=== PATIENT | female | born 1960 | race Caucasian/White ===

== ENCOUNTER 2025-07-16 16:02 | Inpatient (IN) | payer MEDICARE ==
[~2025-07-16 16:02] MED LIST: Iopamidol-370 76% 500 ML MDV (1 ML CHARGE) ONE
[2025-07-16 17:38] LABS: #Basophils Less than 0.03 10x3/uL (0.0-0.2); #Eosinophils Less than 0.03 10x3/uL (0.0-0.7); #Monocytes 0.20 10x3/uL (0.11-0.59); #Neutrophils 4.45 10x3/uL (1.40-6.50); %Basophils 0.2 % (0.0-1.0); %Eosinophils 0.2 % (0.0-10.0); %Lymphocytes 9.1 % (21.0-51.0); %Monocytes 3.9 % (0.0-10.0); %Neutrophils 86.2 % (42.0-75.0); Hematocrit 34.7 % (36.0-47.0); Hemoglobin 11.4 g/dL (12.0-16.0); Mean Corpuscular Hemoglobin 35.3 pg (27.0-31.0); Mean Corpuscular Volume 107.4 fL (78.0-98.0); Platelet Count 65 10x3/uL (130-400); Red Blood Cell (RBC) Count 3.23 mill/uL (4.20-5.40); White Blood Cell (WBC) Count 5.16 10x3/uL (4.8-10.8)
[2025-07-16] MEDS ORDERED: Ondansetron PF 4 MG/2 ML Vial ONE (17:49)
[2025-07-16] MEDS ORDERED: Magnesium 2 GM/50 ML BAG (IN WATER) ONE ×2 (17:50→19:25)
[2025-07-16 18:08] LABS: ALT (SGPT) 23 U/L (Less than 34); AST (SGOT) 66 U/L (11-34); Acetaminophen Less than 10 mcg/mL (Less than 10); Albumin 2.5 g/dL (3.1-4.5); Alkaline Phosphatase 120 U/L (40-110); Anion Gap 15 mmol/L (10-20); BUN (Urea Nitrogen) 7 mg/dL (9.8-20.1); Bilirubin, Total 9.9 mg/dL (0.3-1.2); CK (CPK) 35 U/L (29-168); Calc. Creatinine Clearance 0 mL/min (70-130); Calcium 8.9 mg/dL (7.8-10.44); Carbon Dioxide 23 mmol/L (23-31); Chloride 99 mmol/L (98-107); Globulin 3.8 g/dL (2.4-3.5); Glucose 141 mg/dL (80-115); Potassium 2.7 mmol/L (3.5-5.1); Salicylate Less than 8.0 mg/dL (Less than 8.0)
[2025-07-16 18:10] LABS: Sodium 134 mmol/L (136-145)
[2025-07-16 18:22] LABS: Lipase 3585 U/L (8-78)
[2025-07-16 20:31] LABS: Bacteria/HPF None Seen HPF (None Seen); CAUTI Indications for Culture Pelvic or flank pain; Glucose, Urine (Dipstick) Normal (Negative); Leukocyte Negative Leu/uL (Negative); Protein, Urine (Dipstick) Negative (Neg-Trace); RBC/HPF 0-3 HPF (0-3); Specific Gravity, Urine 1.024 (1.002-1.036); WBC/HPF 0-3 HPF (0-3)
[2025-07-16 20:37] LABS: Cocaine Metabolite Screen Negative (Negative); THC/Cannabinoid Screen Negative (Negative); Tricyclic Screen Negative (Negative)
[2025-07-16 20:41] LABS: Urine Culture Reflex No No
[2025-07-16] MEDS ORDERED: HYDROmorphone 0.5 MG/0.5 ML SYRINGE SLOW IVP PRN (21:38)
[2025-07-16] MEDS ORDERED: Electrolyte Replacement Protocol 1 EACH FS SCH (21:41)
[2025-07-16] MEDS: Thiamine 100 MG TAB PO SCH (22:54)
[2025-07-17 04:46] LABS: #Basophils Less than 0.03 10x3/uL (0.0-0.2); #Eosinophils 0.12 10x3/uL (0.0-0.7); #Monocytes 0.42 10x3/uL (0.11-0.59); #Neutrophils 3.26 10x3/uL (1.40-6.50); %Basophils 0.4 % (0.0-1.0); %Eosinophils 2.5 % (0.0-10.0); %Lymphocytes 20.0 % (21.0-51.0); %Monocytes 8.8 % (0.0-10.0); %Neutrophils 67.9 % (42.0-75.0); Hematocrit 32.2 % (36.0-47.0); Hemoglobin 10.4 g/dL (12.0-16.0); Mean Corpuscular Hemoglobin 35.1 pg (27.0-31.0); Mean Corpuscular Volume 108.8 fL (78.0-98.0); Platelet Count 74 10x3/uL (130-400); Red Blood Cell (RBC) Count 2.96 mill/uL (4.20-5.40); White Blood Cell (WBC) Count 4.80 10x3/uL (4.8-10.8)
[2025-07-17 04:59] LABS: ALT (SGPT) 19 U/L (Less than 34); AST (SGOT) 54 U/L (11-34); Albumin 2.3 g/dL (3.1-4.5); Alkaline Phosphatase 111 U/L (40-110); Anion Gap 10 mmol/L (10-20); BUN (Urea Nitrogen) 7 mg/dL (9.8-20.1); Bilirubin, Total 7.3 mg/dL (0.3-1.2); Calc. Creatinine Clearance 0 mL/min (70-130); Calcium 8.0 mg/dL (7.8-10.44); Carbon Dioxide 25 mmol/L (23-31); Chloride 105 mmol/L (98-107); Globulin 3.3 g/dL (2.4-3.5); Glucose 104 mg/dL (80-115); Potassium 2.9 mmol/L (3.5-5.1); Sodium 137 mmol/L (136-145)
[2025-07-17] MEDS: Enoxaparin 40 MG (0.4 mL) SYRINGE SC SCH (09:32)
[2025-07-17] MEDS: Folic Acid 1 MG TAB PO SCH (09:32)
[2025-07-17] MEDS: Pantoprazole 40 MG DR.TAB PO SCH (09:33)
[2025-07-17] MEDS: Multivit, Therapeutic 1 TAB PO SCH (09:33)
[2025-07-17] MEDS: Ondansetron PF 4 MG/2 ML Vial IVP PRN (12:21)
[2025-07-17 13:43] LABS: Potassium 4.0 mmol/L (3.5-5.1)
[2025-07-18 06:01] LABS: INR-International Normal Ratio 1.6; Prothrombin Time 19.3 sec (12.0-14.7)
[2025-07-18 06:31] LABS: #Basophils Less than 0.03 10x3/uL (0.0-0.2); #Eosinophils 0.13 10x3/uL (0.0-0.7); #Monocytes 0.51 10x3/uL (0.11-0.59); #Neutrophils 3.20 10x3/uL (1.40-6.50); %Basophils 0.4 % (0.0-1.0); %Eosinophils 2.5 % (0.0-10.0); %Lymphocytes 25.4 % (21.0-51.0); %Monocytes 9.8 % (0.0-10.0); %Neutrophils 61.5 % (42.0-75.0); Hematocrit 33.7 % (36.0-47.0); Hemoglobin 10.7 g/dL (12.0-16.0); Mean Corpuscular Hemoglobin 35.8 pg (27.0-31.0); Mean Corpuscular Volume 112.7 fL (78.0-98.0); Platelet Count 77 10x3/uL (130-400); Red Blood Cell (RBC) Count 2.99 mill/uL (4.20-5.40); White Blood Cell (WBC) Count 5.20 10x3/uL (4.8-10.8)
[2025-07-18 06:59] LABS: ALT (SGPT) 18 U/L (Less than 34); AST (SGOT) 50 U/L (11-34); Albumin 2.3 g/dL (3.1-4.5); Alkaline Phosphatase 100 U/L (40-110); Anion Gap 12 mmol/L (10-20); BUN (Urea Nitrogen) 7 mg/dL (9.8-20.1); Bilirubin, Total 7.9 mg/dL (0.3-1.2); Calc. Creatinine Clearance 87 mL/min (70-130); Calcium 8.3 mg/dL (7.8-10.44); Carbon Dioxide 20 mmol/L (23-31); Chloride 110 mmol/L (98-107); Globulin 3.6 g/dL (2.4-3.5); Glucose 71 mg/dL (80-115); Lipase 54 U/L (8-78); Magnesium 1.7 mg/dL (1.6-2.6); Potassium 3.8 mmol/L (3.5-5.1); Sodium 138 mmol/L (136-145)
[2025-07-18] MEDS ORDERED: PNEUMOC 20-VAL CONJ-DIP CRM/PF 0.5 ML SYRINGE IM ONE (09:00)
[2025-07-18] MEDS: Magnesium 2 GM/50 ML(in water) 2 GM in Premix 1 BAG IVPB SCH (09:29)
[2025-07-19 05:16] LABS: #Basophils 0.03 10x3/uL (0.0-0.2); #Eosinophils 0.09 10x3/uL (0.0-0.7); #Monocytes 0.31 10x3/uL (0.11-0.59); #Neutrophils 2.10 10x3/uL (1.40-6.50); %Basophils 0.8 % (0.0-1.0); %Eosinophils 2.4 % (0.0-10.0); %Lymphocytes 30.7 % (21.0-51.0); %Monocytes 8.4 % (0.0-10.0); %Neutrophils 57.2 % (42.0-75.0); Hematocrit 28.4 % (36.0-47.0); Hemoglobin 9.4 g/dL (12.0-16.0); Mean Corpuscular Hemoglobin 35.7 pg (27.0-31.0); Mean Corpuscular Volume 108.0 fL (78.0-98.0); Platelet Count 56 10x3/uL (130-400); Red Blood Cell (RBC) Count 2.63 mill/uL (4.20-5.40); White Blood Cell (WBC) Count 3.68 10x3/uL (4.8-10.8)
[2025-07-19 05:31] LABS: INR-International Normal Ratio 1.7; Prothrombin Time 20.0 sec (12.0-14.7)
[2025-07-19 05:35] LABS: ALT (SGPT) 14 U/L (Less than 34); AST (SGOT) 39 U/L (11-34); Albumin 2.1 g/dL (3.1-4.5); Alkaline Phosphatase 84 U/L (40-110); Anion Gap 8 mmol/L (10-20); BUN (Urea Nitrogen) 4 mg/dL (9.8-20.1); Bilirubin, Total 6.6 mg/dL (0.3-1.2); Calc. Creatinine Clearance 108 mL/min (70-130); Calcium 8.0 mg/dL (7.8-10.44); Carbon Dioxide 20 mmol/L (23-31); Chloride 108 mmol/L (98-107); Globulin 3.0 g/dL (2.4-3.5); Glucose 79 mg/dL (80-115); Potassium 3.4 mmol/L (3.5-5.1); Sodium 133 mmol/L (136-145)
[2025-07-19] MEDS: Albumin 25% 25 GM (100 mL) BOT IVPB SCH (10:08)
[2025-07-19] MEDS: Lactulose 20 GM (30 mL) UDCUP PO SCH ×2 (10:08→22:30)
[2025-07-19] MEDS: Furosemide 40 MG (4 mL) VIAL SLOW IVP SCH (15:16)
[2025-07-20 05:19] LABS: #Basophils Less than 0.03 10x3/uL (0.0-0.2); #Eosinophils 0.09 10x3/uL (0.0-0.7); #Monocytes 0.27 10x3/uL (0.11-0.59); #Neutrophils 1.78 10x3/uL (1.40-6.50); %Basophils 0.6 % (0.0-1.0); %Eosinophils 2.7 % (0.0-10.0); %Lymphocytes 33.8 % (21.0-51.0); %Monocytes 8.2 % (0.0-10.0); %Neutrophils 54.4 % (42.0-75.0); Hematocrit 28.4 % (36.0-47.0); Hemoglobin 9.3 g/dL (12.0-16.0); Mean Corpuscular Hemoglobin 35.6 pg (27.0-31.0); Mean Corpuscular Volume 108.8 fL (78.0-98.0); Platelet Count 70 10x3/uL (130-400); Red Blood Cell (RBC) Count 2.61 mill/uL (4.20-5.40); White Blood Cell (WBC) Count 3.28 10x3/uL (4.8-10.8)
[2025-07-20 05:23] LABS: ALT (SGPT) 15 U/L (Less than 34); AST (SGOT) 38 U/L (11-34); Albumin 2.8 g/dL (3.1-4.5); Alkaline Phosphatase 82 U/L (40-110); Anion Gap 10 mmol/L (10-20); BUN (Urea Nitrogen) 4 mg/dL (9.8-20.1); Bilirubin, Total 5.9 mg/dL (0.3-1.2); Calc. Creatinine Clearance 96 mL/min (70-130); Calcium 8.4 mg/dL (7.8-10.44); Carbon Dioxide 23 mmol/L (23-31); Chloride 109 mmol/L (98-107); Globulin 2.8 g/dL (2.4-3.5); Glucose 84 mg/dL (80-115); Potassium 3.1 mmol/L (3.5-5.1); Sodium 139 mmol/L (136-145)
[2025-07-20] MEDS: Furosemide 40 MG (4 mL) VIAL SLOW IVP SCH (08:08)
[2025-07-20] MEDS: Potassium Bicarbonate/Cit Ac 20 MEQ TAB PO SCH (09:59)
[2025-07-20 11:53] VITALS: BP 113/56; TEMP 98.5
[2025-07-20] MEDS: FLU (Fluad Triv) 25-26 (65UP)PF 45 MCG/0.5 ML Syringe IM ONE (12:45)
== END 2025-07-20 17:55 | disposition home or self-care (01) | DRG 432 ==
LOC: ERS 16:02 → 2NO 20:13
PROVIDERS: ADMIT Internal Medicine; ATTEND Family Medicine
PROC: 3E02340 Introduction of Influenza Vaccine into Muscle, Percutaneous Approach (ICD-10-PCS; 2025-07-16)
PROC: 3E03329 Introduction of Other Anti-infective into Peripheral Vein, Percutaneous Approach (ICD-10-PCS; 2025-07-18)
PROC: 3E0234Z Introduction of Serum, Toxoid and Vaccine into Muscle, Percutaneous Approach (ICD-10-PCS; 2025-07-18)
PROC: 30233J1 Transfusion of Nonautologous Serum Albumin into Peripheral Vein, Percutaneous Approach (ICD-10-PCS; principal; 2025-07-19)
DX: K70.31 Alcoholic cirrhosis of liver with ascites (principal); K85.10 Biliary acute pancreatitis without necrosis or infection; K81.0 Acute cholecystitis; I74.8 Embolism and thrombosis of other arteries; E03.9 Hypothyroidism, unspecified; E87.6 Hypokalemia; K21.9 Gastro-esophageal reflux disease without esophagitis; Z23 Encounter for immunization; F10.20 Alcohol dependence, uncomplicated; Z88.8 Allergy status to other drugs, medicaments and biological substances; I25.10 Atherosclerotic heart disease of native coronary artery without angina pectoris; Z71.41 Alcohol abuse counseling and surveillance of alcoholic; F41.9 Anxiety disorder, unspecified; F32.A Depression, unspecified; D69.59 Other secondary thrombocytopenia
CPT/HCPCS: 36415; 36416; 71045; 74177; 74183; 76376; 76705; 80053; 80306; 80307; 81001; 82140; 82550; 83605; 83690; 83735; 84443; 85025; 85610; 87040; 90653; 93005; 93976; 96365; 96366; 96368; 96375; 96376; J1650; J1940; J2270; J2405; J2543; J3411; J3475; J7030; J7042; J7120; P9047; Q9967